=== PATIENT | female | born 1995 | race Caucasian/White ===

== ENCOUNTER 2025-03-01 11:12 | Emergency (ER) | payer SELFPAY ==
[2025-03-01 11:16] VITALS: BP 111/67; PULSE 86; TEMP 36.3; O2SAT 97; BMI 24.6
--- OUTSIDE RECORDS SUMMARY | 2025-03-01 11:22 | XMS_ITS | Encounter Summary ---
Author Organization [facility] Address [address] [place] [address] Care Team Providers Care Wharf Labourer Name Role Phone Jimbo Conley DO Primary Care Provider Julia Bernabe BLEACHING SUPERVISOR Unavailable [phone] Aron Miller BLEACHING SUPERVISOR Unavailable [phone] Reason for Visit * Reason Onset Date Comments Med Refill 02/11/2024 Encounter Details Date Type Department Care Team (Late Contact Info) Description 02/11/2024 Refill [facility] [place] [facility] [address] [phone] Julia Bernabe, BLEACHING SUPERVISOR [address] [place] [address] Attention deficit disorder, unspecified hyperactivity presence Social History Tobacco Use Types Packs/Day Years Used Date Smoking Tobacco: Never Smokeless Tobacco: Never Alcohol Use Standard Drinks/Week Comments Yes 0 (1 standard drink = 0.6 oz pure alcohol) 3 points positive interpretation; Caffeine: 1-2 cups a day coffee, tea Comments Unknown Sex and Gender Information Value Date Recorded Sex Assigned at Not on file Legal Sex Female 7:18 PM EDT Gender Identity Not on file Sexual Orientation Not on file documented as of this encounter Plan of Treatment Upcoming Encounters Date Type Department Care Team (Late Contact Info) Description 03/10/2025 3:30 PM EDT Procedure Visit MARVIN GALICIA [address] [place] [address] Hellen Núñez CN [address] [place], [place] [phone] 12/02/2025 9:00 AM EDT Office Visit [facility] [address] [facility] [address] [place] [phone] Jimbo Conley DO [address] [facility] 230 [place] [address] documented as of this encounter Visit Diagnoses Diagnosis Attention deficit disorder, unspecified hyperactivity presence documented in this encounter Care Teams Wharf Labourer Relationship Specialty Start Date End Date Jimbo Conley DO [address] [facility] 230 [place] [address] PCP - General Internal Medicine 12/12/22 Julia Bernabe NP [address] [place] [address] PCP - [place] [employer] 01/05/2407/05 Aron Miller NP PCP - [place] [employer] 07/06/24 documented as of this encounter
--- OUTSIDE RECORDS SUMMARY | 2025-03-01 11:22 | XMS_ITS | Clinical Summary ---
Author Organization [facility] Address [id number] [address] [place] [address] Care Team Providers Care Boat Cleaning Supervisor Name Role Phone Salma Caballero DO Primary Care Provider [phone] Allergies No known active allergies Medications vit no.124/iron/foli c ( VITAMIN ORAL) Take by mouth. Active Immunizations Immunization Administration Dates Next Due Rho (D) Immune Globulin 09/16/2021 Social History Tobacco Use Types Packs/Day Years Used Date Smoking Tobacco: Never Smokeless Tobacco: Never Alcohol Use Standard Drinks/Week Comments Not Currently 0 (1 standard drink = 0.6 oz pur e alcohol) occasionally AUDIT-C Answer Date Recorded Frequency of Alcohol Consumption Never 04/28/2018 Average Number of Drinks Not on file 018 Frequency of Binge Drinking Not on file 04/07 Childcare Answer Date Recorded Childcare Unknown 01/15/2019 Employment Answer Date Recorded Employment Unknown 01/15/2019 Purpose - Life Answer Date Recorded Purpose and direction in life Unknown Comments No Sex and Gender Information Value Date Recorded Sex Assigned at Not on file Legal Sex Female 11:53 AM EDT Gender Identity Not on file Sexual Orientation Not on file Last Filed Vital Signs Vital Sign Reading Time Taken Comments Blood Pressure 95/61 04/28/2018 6:12 PM EDT Pulse 92 04/28/2018 5:48 PM EDT Temperature 36.8 C (98.3 F) 04/28/2018 5:48 PM EDT Respiratory Rate 20 04/28/2018 5:48 PM EDT Oxygen Saturation 92% 04/28/2018 6:13 PM EDT Inhaled Oxygen Concentration - - Weight 51.3 kg (113 lb) 04/28/2018 5:48 PM EDT Height 154.9 cm (5' 1 ) 04/28/2018 5:48 PM EDT Body Mass Index 21.35 04/28/2018 5:48 PM EDT Plan of Treatment Health Maintenance Due Date Last Done Comments Depression Screening 2009 Tobacco Screening 2009 Adult BMI Screening 2015 Pap Smear 2018 Influenza Vaccine 04/06/2025 DTaP,Tdap and Td Vaccines (8 - Td or Tdap) 09/15/2031 09/15/2021, 04/12/2010, 04/01/2003, Additional history exists Medical Devices Not on file Insurance [employer] Care Teams Boat Cleaning Supervisor Relationship Specialty Start Date End Date Salma Caballero DO [address] [place] [address] PCP - General 04/28/18
--- OUTSIDE RECORDS SUMMARY | 2025-03-01 11:22 | XMS_ITS | Encounter Summary ---
Author Organization [facility] Address [address] [place] [address] Care Team Providers Care Freelance Displayer Name Role Phone Jimbo Conley DO Primary Care Provider [phone] Reason for Visit * Reason Onset Date Comments Med Refill 01/15/2025 Encounter Details Date Type Department Care Team (Late st Contact Info) Description 01/15/2025 Refill [facility] [address] [facility] [address] [place] [address] Miladis Beth NP [address] [facility] [address] [place] [address] Attention deficit hyperactivity disorder (ADHD), combined type Social History Tobacco Use Types Packs/Day Years Used Date Smoking Tobacco: Never Smokeless Tobacco: Never Alcohol Use Standard Drinks/Week Comments Yes 0 (1 standard drink = 0.6 oz pure alcohol) 3 points positive interpretation; Caffeine: 1-2 cups a day coffee, tea Comments No Sex and Gender Information Value Date Recorded Sex Assigned at Not on file Legal Sex Female 7:18 PM EDT Gender Identity Not on file Sexual Orientation Not on file documented as of this encounter Miscellaneous Notes * Telephone Encounter - Miladis Beth NP - 01/15/2025 5:31 PM EDT Sent documented in this encounter Plan of Treatment Upcoming Encounters Date Type Department Care Team (Late st Contact Info) Description 03/10/2025 3:30 PM EDT Procedure Visit [facility] [address] [place] [address] Hellen Núñez CNM [address] [place] [address] 12/02/2025 9:00 AM EDT Office Visit [facility] [address] [facility] [address] [place] [address] Jimbo Conley DO [address] [facility] 230 [place] [address] documented as of this encounter Visit Diagnoses Diagnosis Attention deficit hyperactivity disorder (ADHD), combined type documented in this encounter Care Teams Freelance Displayer Relationship Specialty Start Date End Date Jimbo Conley DO [address] [facility] 230 [place] [address] PCP - General Internal Medicine 12/12/22 documented as of this encounter
--- OUTSIDE RECORDS SUMMARY | 2025-03-01 11:22 | XMS_ITS | Encounter Summary ---
Author Organization [facility] Address [address] [place] [address] Care Team Providers Care Lap Machine Operator Name Role Phone Jimbo Conley Primary Care Provider Encounter Details Date Type Department Care Team (Late Contact Info) Description 01/20/2025 Results Follow-Up MARVIN GALICIA [address] [place] [address] Nahomy Briones MA Social History Tobacco Use Types Packs/Day Years [...] Upcoming Encounters Date Type Department Care Team ([facility] Contact Info) Description 03/10/2025 3:30 PM EDT Procedure Visit MARVIN GALICIA [address] [place] [address] Hellen Núñez CNM [address] [place] [address] 12/02/2025 9:00 AM EDT Office Visit [facility] [address] [facility] [address] [place] [address] Jimbo Conley DO [address] [facility] [address] [facility] 230 [place] [address] documented as of this encounter Visit Diagnoses Not on filedocumented in this encounter Care Teams Lap Machine Operator Relationship Specialty Start Date End Date Jimbo Conley DO [address] [facility] [address] [facility] 230 [place] [address] PCP - General Internal Medicine 12/12/22 documented as of this encounter
--- OUTSIDE RECORDS SUMMARY | 2025-03-01 11:22 | XMS_ITS | Clinical Summary ---
Author Organization [facility] Address [address] [place] [address] Care Team Providers Care Javascript Developer Name Role Phone CtjeannaJimbo Anai ANDERSON Primary Care Provider Allergies No known active allergies Medications etonogestrel-elut ing (Nexplanon) 68 mg contraceptive implant 1 each by Implant route 1 (one) time Active amphetamine-dextr oamphetamine XR (Adderall XR) 15 MG 24 hr capsuleIndication s:Attention deficit hyperactivity disorder (ADHD), combined type Take 1 capsule (15 mg) by mouth 1 (one) time each day at the same time 30 capsule 5 Active amphetamine-dextr oamphetamine XR (Adderall XR) 30 MG 24 hr capsuleIndication s:Attention deficit hyperactivity disorder (ADHD), combined type Take 1 capsule (30 mg) by mouth in the morning. Do not crush or chew. 30 capsule 5 Active amphetamine-dextr oamphetamine XR (Adderall XR) 15 MG 24 hr capsuleIndication s:Attention deficit hyperactivity disorder (ADHD), combined type Take 1 capsule (15 mg) by mouth 1 (one) time each day at the same time 30 capsule 5 02/14/20 25 Discontinu ed(Reorder ) amphetamine-dextr oamphetamine XR (Adderall XR) 30 MG 24 hr capsuleIndication s:Attention deficit hyperactivity disorder (ADHD), combined type Take 1 capsule (30 mg) by mouth in the morning. Do not crush or chew. 30 capsule 02/14/20 25 Discontinu ed(Reorder ) Active Problems Problem Noted Date Diagnosed Date ADHD (attention deficit hyperactivity disorder) 06/01/2023 Overview (12/03/2023): In the past she has taken Focalin and Vyvanse but these have not worked well Mild intermittent asthma 06/01/2023 Encounters Date Type Department Care Team Description 02/13/2025 Refill [facility] [address] [facility] [address] [place] [address] Ignacia, Miladis, BROKERAGE COORDINATOR Attention deficit hyperactivity disorder (ADHD), combined type 02/13/2025 Refill [facility] [address] [place] [address] Ignacia, Miladis, BROKERAGE COORDINATOR Attention deficit hyperactivity disorder (ADHD), combined type 01/20/2025 Results [facility] [address] [place] [phone] Nahomy Briones MA 01/15/2025 Refill [facility] [address] [place] [address] Ignacia, Miladis, BROKERAGE COORDINATOR Attention deficit hyperactivity disorder (ADHD), combined type 01/15/2025 Refill [facility] [address] [place] [address] Waryin, Miladis, BROKERAGE COORDINATOR Attention deficit hyperactivity disorder (ADHD), combined type 01/12/2025 4:00 PM EDT [facility] [address] [place] [address] Hellen Núñez, GISELLE Normal gynecologic examination; Screening for cervical cancer; Encounter for removal and reinsertion of Nexplanon 01/05/2025 Refill [facility] [address] [place] [address] Warchol, Miladis, BROKERAGE COORDINATOR Attention deficit hyperactivity disorder (ADHD), combined type 12/21/2024 Results Follow-Up [facility] [place] [facility] [address] [place] [address] Jimbo Conley, 12/15/2024 Refill [facility] [place] [facility] [address] [address] [place] [phone] Dai Ledbetter LPN Attention deficit hyperactivity disorder (ADHD), combined type 12/09/2024 Telephone [facility] [place] [facility] [address] [place] [address] Debra White LPN 12/04/2024 External Result Encounter [facility] External Department Unsolicited Jimbo Conley, 12/02/2024 3:30 PM EDT Office Visit [facility] [place] [facility] [address] [facility] [facility] [address] [place] [address] Jimbo Conley, Other fatigue 12/02/2024 Travel from Last 3 Months Immunizations Immunization Administration Dates Next Due DTaP 04/12/2010 DTaP, Unspecified 04/01/2003, 1,07/07/1998,1997, 1997 Hep B, Adolescent or Pediatric 07/07/1998,1996,1997 Hib (HbOC) 04/03/2001 Hib (PRP-OMP) 04/01/2003,07/07/1998,1997 ,1997 Hib / Hep B 07/07/1998,1997 IPV 04/01/2003,1997,1997 MMR 04/01/2003,07/07/1998 Meningococcal ACWY, unspecified 04/12/2010 OPV 07/07/1998 Rho(D)-IG 09/16/2021 Tdap 09/15/2021 Family History Medical History Relation Name Comments No Known Problems Daughter Cancer Father Diabetes Father Cancer Father's Sister Brain cancer Maternal Grandfather bladder cancer Mother's Brother Breast cancer Mother's Sister Cancer Paternal Grandfather Dementia Paternal Grandfather No Known Problems Sister Relation Name Status Comments Brother 3 Daughter 1 Father Alive Father's Sister Maternal Grandfather Mother Alive Mother's Brother Mother's Sister Paternal Grandfather Sister 2 Social History Tobacco Use Types Packs/Day Years Used Date Smoking Tobacco: Never Smokeless Tobacco: Never Tobacco Cessation:Counseling Given: Not Answered Alcohol Use Standard Drinks/Week Comments Yes 0 [...] Sign Reading Time Taken Comments Blood Pressure 110/70 01/12/2025 4:11 PM EDT Pulse 90 12/02/2024 3:51 PM EDT Temperature - - Respiratory Rate - - Oxygen Saturation 98% 12/02/2024 3:51 PM EDT Inhaled Oxygen Concentration - - Weight 59.9 kg (132 lb) 01/12/2025 4:11 PM EDT Height 156.2 cm (5' 1.5 ) 12/02/2024 3:51 PM EDT Body Mass Index 24.54 12/02/2024 3:51 PM EDT Plan of Treatment Upcoming Encounters Date Type Department Care Team (Late st Contact Info) Description 03/10/2025 3:30 PM EDT Procedure Visit MARVIN GALICIA [address] [place] [phone] Hellen Núñez CN [address] [place], [place] [phone] 12/02/2025 9:00 AM EDT Office Visit [facility] [address] [place] [address] Jimbo Conley DO [address] [place] [address] Health Maintenance Due Date Last Done Comments Influenza Vaccine (#1) 2025 Procedures Procedure Name Priority Date/Time Associated Diagnosis Comments THINPREP IMAGING PAP AND HPV DNA REFLEX HPV 16,18 Routine 01/12/2025 5:00 PM EDT Screening for cervical cancer TSH Routine 12/04/2024 2:13 PM EDT CBC (INCLUDES DIFF/PLT) Routine 12/04/2024 2:13 PM EDT IRON AND TOTAL IRON BINDING CAPACITY Routine 12/04/2024 2:13 PM EDT from Last 3 Months Results * THINPREP IMAGING PAP AND HPV DNA REFLEX HPV 16,18 (01/12/2025 5:00 PM EDT) CLINICAL INFORMATION [facility] Comment:None given LMP [facility] Comment:NONE GIVEN PREV. PAP [facility] Comment:NONE GIVEN PREV. BX [facility] Comment:NONE GIVEN SOURCE [facility] Comment:None given STATEMENT OF ADEQUACY [facility] Comment: Satisfactory for evaluation. Endocervical/transformation zone component present. INTERPRETATION/RESU LT [facility] Comment: Cytology Results: Negative for intraepithelial lesion or malignancy. COMMENT [facility] Comment: This Pap test has been evaluated with computer assisted technology. PROGRAM SUPPORT CLERK [facility] Comment: [facility], [place](ASCP) CT screening location: [facility] [address]. REVIEW PROGRAM SUPPORT CLERK [facility] Comment: [facility], CT(ASCP) CT screening location: [place] [address]. (ALWAYS MESSAGE) [facility] Comment: EXPLANATORY NOTE: The Pap is a screening test for cervical cancer. It is not a diagnostic test and is subject to false negative and false positive results. It is most reliable when a satisfactory sample, regularly obtained, is submitted with relevant clinical findings and history, and when the Pap result is evaluated along with historic and current clinical information. HPV DNA, HIGH RISK, CERVICAL Not Detected NOT DETECTED [facility] Comment: Not Detected High Risk HPV types (16,18,31,33,35,39,45,51,52, 56,58,59,66,68) were not detected. Other HPV types which cause anogenital lesions may be present. The significance of the other types of HPV in malignant processes has not been established. Methodology: Real Time PCR Swab Cervical swab / Unknown 01/12/2025 5:00 PM EDT 01/14/2025 3:38 AM EDT Narrative Resulting Agency Comment Performing Organization Information Site ID: [id number] Name: [facility] Address: [address] [place] [address] Dr [place], [place] Director: Timmy Maguire M.D.,PhD Site ID: [id number] Name: [facility] Address: [address] [place] [address], [address] [place] [phone] Director: Naseem Hu MD us Hellen FLORES LAB CYTOLOGY ORDERABLES Audelia l Result Performing Organization Address [facility] de Phone Number [facility] * Iron and TIBC (12/04/2024 2:13 PM EDT) Pathologist [facility] IRON, TOTAL 63 40 - 190 mcg/dL [facility] IRON BINDING CAPACITY 318 250 - 450 mcg/dL (calc) [facility] % SATURATION 20 16 - 45 % (calc) [facility] 12/04/2024 2:13 PM EDT 12/04/2024 2:16 PM EDT Narrative [facility] - 12/05/2024 7:31 AM EDT FASTING:NO FASTING: NO Resulting Agency Comment Performing Organization Information Site ID: [id number] Name: [facility] Address: [address] [place] [address], [address] [place], [place] [id number] Director: Naseem Hu MD us Jimbo Conley DO LAB BLOOD ORDERABLES Final R esult Performing Organization Address [facility] de Phone Number [facility] * CBC and differential (12/04/2024 2:13 PM EDT) WHITE BLOOD CELL COUNT 9.6 3.8 - 10.8 Thousand/u L [facility] RED BLOOD CELL COUNT 4.64 3.80 - 5.10 Million/uL [facility] HEMOGLOBIN 13.5 11.7 - 15.5 g/dL [facility] HEMATOCRIT 39.4 35.0 - 45.0 % [facility] MCV 84.9 80.0 - 100.0 fL [facility] MCH 29.1 27.0 - 33.0 pg [facility] MCHC 34.3 32.0 - 36.0 g/dL [facility] Comment: For adults, a slight decrease in the calculated MCHC value (in the range of 30 to 32 g/dL) is most likely not clinically significant; however, it should be interpreted with caution in correlation with other red cell parameters and the patient's clinical condition. RDW 12.1 11.0 - 15.0 % [facility] PLATELET COUNT 335 140 - 400 Thousand/u L [facility] MPV 10.5 7.5 - 12.5 fL [facility] ABSOLUTE NEUTROPHILS 6,614 1,500 - 7,800 cells/uL [facility] ABSOLUTE LYMPHOCYTES 2,371 850 - 3,900 cells/uL [facility] ABSOLUTE MONOCYTES 499 200 - 950 cells/uL [facility] ABSOLUTE EOSINOPHILS 86 15 - 500 cells/uL [facility] ABSOLUTE BASOPHILS 29 0 - 200 cells/uL [facility] NEUTROPHILS 68.9 % [facility] LYMPHOCYTES 24.7 % [facility] MONOCYTES 5.2 % [facility] EOSINOPHILS 0.9 % [facility] BASOPHILS 0.3 % [facility] 12/04/2024 2:13 PM EDT 12/04/2024 2:16 PM EDT Narrative [facility] - 12/05/2024 7:31 AM EDT FASTING:NO FASTING: NO Resulting Agency Comment Performing Organization Information Site ID: [id number] Name: [facility] Address: [address] [place] [phone] Director: Naseem Hu MD us Jimbo Conley DO LAB BLOOD ORDERABLES Final R esult [facility] * TSH (12/04/2024 2:13 PM EDT) TSH 1.09 mIU/L [facility] Comment: Reference Range > or = 20 Years 0.40-4.50 Ranges First trimester 0.26-2.66 Second trimester 0.55-2.73 Third trimester 0.43-2.91 12/04/2024 2:13 PM EDT 12/04/2024 2:16 PM EDT Narrative [facility] - 12/05/2024 7:31 AM EDT FASTING:NO FASTING: NO Resulting Agency Comment Performing Organization Information Site ID: [id number] Name: [facility] Address: [address] [facility], [address] [place] [phone] Director: Naseem Hu MD Jimbo Conley DO LAB BLOOD ORDERABLES Final R esult [facility] from Last 3 Months Insurance BCBS Care Teams Javascript Developer Relationship Specialty Start Date End Date Jimbo Conley DO [address] Beth[address] Lange [address] [address] PCP - General Internal Medicine 12/12/22
--- OUTSIDE RECORDS SUMMARY | 2025-03-01 11:22 | XMS_ITS | Encounter Summary ---
Author Organization [facility] Address [address] [place] [address] Care Team Providers Care Loftsman Name Role Phone Jimbo Conley DO Primary Care Provider Julia Bernabe FILM EXAMINER Unavailable Aron Miller FILM EXAMINER Unavailable [phone] Reason for Visit * Reason Onset Date Comments Med Refill 01/11/2024 Encounter Details Date Type Department Care Team (Late Contact Info) Description 01/11/2024 Refill [facility] [address] [facility] 230 [place] [address] Aron Miller NP Attention deficit disorder, unspecified hyperactivity presence Social [...] Upcoming Encounters Date Type Department Care Team ([facility] Contact Info) Description 03/10/2025 3:30 PM EDT Procedure Visit MARVIN GALICIA [facility] [place] [address] Hlelen Núñez, CN [address] [facility] [place] [address] 12/02/2025 9:00 AM EDT Office Visit [facility] [place] [facility] [address] [facility] [address] [place] [address] Jimbo Conley DO [address] [facility] [address] [place] [address] documented as of this encounter Visit Diagnoses Diagnosis Attention deficit disorder, unspecified hyperactivity presence documented in this encounter Care Teams Loftsman Relationship Specialty Start Date End Date Jimbo Conley DO [address] [facility] [address] [place] [address] PCP - General Internal Medicine 12/12/22 Julia Bernabe NP [address] [place] [address] PCP - [place] [employer] 01/05/2407/05 Aron Miller NP PCP - [place] [employer] 07/06/24 documented as of this encounter
--- OUTSIDE RECORDS SUMMARY | 2025-03-01 11:22 | XMS_ITS | Encounter Summary ---
Author Organization [facility] Address [address] [facility], [address] [place] [address] Care Team Providers Care Station Mechanic Helper Name Role Phone Unavailable Primary Care Provider Unavailwinnie e Encounter Details Date Type Department Care Team (Late st Contact Info) Description 12/26/2021 FollowUp Telephone Encounter [facility] Labor and Delivery [address] [place] [address] Alicia Black, [place] [address] Social History Tobacco Use Types Packs/Day Years Used Date Smoking Tobacco: Never Smokeless Tobacco: Never Alcohol Use Standard Drinks/Week Comments Not Currently 0 (1 standard drink = 0.6 oz pur e alcohol) Comments No Sex and Gender Information Value Date Recorded Sex Assigned at Not on file Legal Sex Female 11:29 AM EDT Gender Identity Not on file Sexual Orientation Not on file COVID-19 Exposure Response Date Recorded In the last 10 days, have yo u been in contact with someone who was confirmed or suspected to have Coronavirus/COVID-19? No / Unsure 12/12/2021 1:50 AM EDT documented as of this encounter Plan of Treatment Not on file documented as of this encounter Visit Diagnoses Not on filedocumented in this encounter
--- OUTSIDE RECORDS SUMMARY | 2025-03-01 11:22 | XMS_ITS | Encounter Summary ---
Author Organization [facility] Address [address] [place] [address] Care Team Providers Care Pbx Installer Name Role Phone Jimbo Conley DO Primary Care Provider Encounter Details Date Type Department Care Team (Late Contact Info) Description 12/21/2024 Results Follow-Up [facility] [address] [facility] [address] [place] [address] Jimbo Conley DO [address] [facility] [address] [place] [address] Social History Tobacco Use Types Packs/Day Years [...] Upcoming Encounters Date Type Department Care Team ([facility] Contact Info) Description 03/10/2025 3:30 PM EDT Procedure Visit MARVIN GALICIA [address] [place] [phone] Hellen Núñez, MARKM [address] [place] [address] 12/02/2025 9:00 AM EDT Office Visit [facility] [place] [facility] [address] [place] [address] Jimbo Conley DO [address] [place] [address] documented as of this encounter Visit Diagnoses Not on filedocumented in this encounter Care Teams Pbx Installer Relationship Specialty Start Date End Date Jimbo Conley DO [address] [facility] [facility] [address] [place] [address] PCP - General Internal Medicine 12/12/22 documented as of this encounter
--- OUTSIDE RECORDS SUMMARY | 2025-03-01 11:22 | XMS_ITS | Encounter Summary ---
Author Organization [facility] Address [address] [place] [address] Care Team Providers Care Field Radio Operator Name Role Phone Jimbo Conley DO Primary Care Provider Julia Bernabe CHILD CARE LEAD TEACHER Unavailable Aron Miller CHILD CARE LEAD TEACHER Unavailable [phone] Reason for Visit * Reason Onset Date Comments Med Refill 02/17/2024 Encounter Details Date Type Department Care Team (Late st Contact Info) Description 02/17/2024 Refill [facility] Internal Medicine [address] [phone] Julia Bernabe, CHILD CARE LEAD TEACHER [address] [place] [address] Attention deficit disorder, unspecified hyperactivity presence Social [...] encounter Miscellaneous Notes * Telephone Encounter - Dai Ledbetter LPN - 02/18/2024 8:00 AM EDT Duplicate documented in this encounter Plan of Treatment Upcoming Encounters Date Type Department Care Team (Late st Contact Info) Description 03/10/2025 3:30 PM EDT Procedure Visit [facility] [address] [place] [address] Hellen Núñez CNM [address] [place], [place] [phone] 12/02/2025 9:00 AM EDT Office Visit [facility] [place] [facility] [address] [facility] [address] [place] [phone] Jimbo Conley DO [address] [facility] [address] [place] [address] documented as of this encounter Visit Diagnoses Diagnosis Attention deficit disorder, unspecified hyperactivity presence documented in this encounter Care Teams Field Radio Operator Relationship Specialty Start Date End Date Jimbo Conley DO [address] [facility] [address] [place] [address] PCP - General Internal Medicine 12/12/22 Julia Bernabe NP [address] [place] [address] PCP - [place] [employer] 01/05/2407/05 Aron Miller NP PCP - [place] [employer] 07/06/24 documented as of this encounter
--- OUTSIDE RECORDS SUMMARY | 2025-03-01 11:22 | XMS_ITS | Clinical Summary ---
Author Organization [facility] Address [address] [facility], [address] [place] [address] Care Team Providers Care Satellite Dish Repairer Name Role Phone Unavailable Primary Care Provider Unavailabl e Allergies No known active allergies Medications amphetamine-dex troamphetamine (ADDERALL XR) 10 MG extended release capsule Take 25 mg by mouth every morning. 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 fetus 12/15/2021 Failure to progress in labor 12/15/2021 Family History Medical History Relation Name Comments Breast Cancer Maternal Aunt Cancer Maternal Grandfather Cancer Maternal Uncle Relation Name Status Comments Maternal Aunt Maternal Grandfather Maternal Uncle Social History Tobacco Use Types Packs/Day Years [...] Sign Reading Time Taken Comments Blood Pressure 132/75 12/15/2021 7:31 AM EDT Pulse 105 12/15/2021 7:31 AM EDT Temperature 36.4 C (97.5 F) 12/15/2021 7:31 AM EDT Respiratory Rate 16 12/15/2021 7:31 AM EDT Oxygen Saturation 95% 12/13/2021 3:45 AM EDT Inhaled Oxygen Concentration - - Weight 81.6 kg (180 lb) 12/12/2021 1:50 AM EDT Height 156.2 cm (5' 1.5 ) 12/12/2021 1:50 AM EDT Body Mass Index 33.46 12/12/2021 1:50 AM EDT Plan of Treatment Not on file Insurance [employer] Advance Directives * Full Code (Latest Code Status on File) Date Activated Date Inactivated Comments 12/12/2021 1:25 AM 12/13/2021 3:56 AM
--- OUTSIDE RECORDS SUMMARY | 2025-03-01 11:22 | XMS_ITS | Encounter Summary ---
Author Organization [facility] Address [address] [place] [address] Care Team Providers Care Gis Geographer Name Role Phone Jimbo Conley DO Primary Care Provider Julia Bernabe HAND SURGEON Unavailable [phone] Aron Miller HAND SURGEON Unavailable [phone] Reason for Visit * Reason Onset Date Comments Med Refill 03/20/2024 Encounter Details Date Type Department Care Team (Late Contact Info) Description 03/20[facility] [address] [facility] [address] [place] [phone] Jimbo Conley DO [address] [facility] [address] [place] [address] Attention deficit disorder, unspecified hyperactivity presence Social [...] EDT Procedure Visit [facility] [address] [facility] [place] [address] Hellen Núñez CNM [address] [facility] [place] [address] 12/02/2025 9:00 AM EDT Office Visit [facility] [address] [email or web address] [address] [place] [address] Jimbo Conley DO [address] [facility] [address] [place] [address] documented as of this encounter Visit Diagnoses Diagnosis Attention deficit disorder, unspecified hyperactivity presence documented in this encounter Care Teams Gis Geographer Relationship Specialty Start Date End Date Jimbo Conley DO [address] [facility] [address] [place] [address] PCP - General Internal Medicine 12/12/22 Julia Bernabe NP [address] [place] [address] PCP - [place] [employer] 01/05/2407/05 Aron Miller NP PCP - [place] [employer] 07/06/24 documented as of this encounter
--- NOTE | 2025-03-01 11:23 | ED_ITS ---
HPI HPI - General Adult General Chief complaint: Nausea/Vomiting/Diarrhea Stated complaint: VOMITING, LIGHT HEADED Time Seen by Provider: 03/01/25 11:18 Source: patient Mode of arrival: Wheelchair History of Present Illness HPI narrative: 29-year-old female presents to the emergency department for nausea and vomiting. She believes she has a hangover. She was drinking alcohol heavily last night and started vomiting about 8:00 this morning. No fever or diarrhea. She had a period about a week ago. Related Data Previous Rx's ?Medication ?Instructions ?Recorded ondansetron 4 mg disintegrating 4 mg PO Q6H PRN nausea and 03/01/25 tablet vomiting #20 tabs Allergies Allergy/AdvReac Type Severity Reaction Status Date / Time No Known Drug Allergies Allergy Verified 03/01/25 11:20 Review of Systems ROS Narrative A ten point review of systems is negative except as noted above. PFSH PFSH Social History Little interest or pleasure in doing things: not at all Feeling down, depressed, or hopeless: not at all Exam Narrative Exam Narrative: Nurses note and vital signs reviewed and patient is not hypoxic. General: The patient appears well and in no apparent distress. Patient is resting comfortably on cart. Skin: Warm, dry, no pallor noted. There is no rash noted. Head: Normocephalic, atraumatic Eye: Normal conjunctiva, no drainage Ears, Nose, Mouth, and Throat: oral mucosa is moist. Nares patent. Cardiovascular: Regular Rate and Rhythm Respiratory: Patient is in no distress, no accessory muscle use, lungs are clear to auscultation, no wheezing, rales or rhonchi Back: non-tender GI: Soft and nontender Musculoskeletal: The patient has no evidence of calf tenderness, no pitting edema, symmetrical pulses noted bilaterally Neurological: A&O, normal speech Psychiatric: Cooperative Constitutional Vital Signs, click to edit/add: Last Vital Signs Temp 97.4 F L 03/01/25 11:16 Pulse 86 03/01/25 11:16 Resp 16 03/01/25 11:16 BP 111/67 03/01/25 11:16 Pulse Ox 97 03/01/25 11:16 O2 Del Method Room Air 03/01/25 11:16 Course Vital Signs Vital signs: Vital Signs Temperature 97.4 F L 03/01/25 11:16 Pulse Rate 86 03/01/25 11:16 Respiratory Rate 16 03/01/25 11:16 Blood Pressure 111/67 03/01/25 11:16 Pulse Oximetry 97 03/01/25 11:16 Oxygen Delivery Method Room Air 03/01/25 11:16 Temperature 97.4 F L 03/01/25 11:16 Pulse Rate 86 03/01/25 11:16 Respiratory Rate 16 03/01/25 11:16 Blood Pressure 111/67 03/01/25 11:16 Pulse Oximetry 97 03/01/25 11:16 Oxygen Delivery Method Room Air 03/01/25 11:16 Medical Decision Making MDM Narrative Medical decision making narrative: The patient feels improved after IV fluids and Zofran. Her laboratory analysis is negative. She is sent home with a prescription for Zofran. Treatment diagnosis and follow-up were discussed with the patient. Differential Diagnosis Differential Diagnosis: Dehydration, electrolyte imbalance Lab Data Lab results reviewed: Yes I reviewed the patient's lab results Labs: Lab Results 03/01/25 Range/Units 11:30 WBC 10.0 (4.0-11.0) 10^3/uL RBC 4.97 (4.20-5.40) 10^6/uL Hgb 14.3 (12.0-16.0) g/dL Hct 40.6 (36.0-48.0) % MCV 81.7 (81.0-99.0) fL MCH 28.8 (26.7-34.0) pg MCHC 35.2 (29.9-35.2) g/dL RDW 12.1 (11.0-15.0) % Plt Count 357 (150-450) 10^3/uL MPV 9.5 (9.5-13.5) fL Neut % (Auto) 66.6 (43.0-75.0) % Lymph % (Auto) 26.7 (20.5-60.0) % Taliaferro % (Auto) 5.4 (1.7-12.0) % Eos % (Auto) 0.9 (0.9-7.0) % Baso % (Auto) 0.2 (0.2-2.0) % Neut # (Auto) 6.6 H (1.4-6.5) 10^3/uL Lymph # (Auto) 2.7 (1.2-3.8) 10^3/uL Taliaferro # (Auto) 0.5 (0.3-0.8) 10^3/uL Eos # (Auto) 0.1 (0.0-0.7) 10^3/uL Baso # (Auto) 0.0 (0.0-0.1) 10^3/uL Abs Immat Gran (auto) 0.02 (0.00-0.03) 10^3/uL Imm/Tot Granulo (auto) 0.2 (0.0-0.5) % Sodium 143 (136-145) mmol/L Potassium 4.2 (3.5-5.1) mmol/L Chloride 106 (98-107) mmol/L Carbon Dioxide 28.3 (21.0-32.0) mmol/L Anion Gap 12.9 BUN 20.0 H (7.0-18.0) mg/dL Creatinine 0.67 (0.55-1.02) mg/dL Est GFR ( Amer) >60 (>=60 mL/min/1.73m^2) Est GFR (Non-Af Amer) >60 (>=60 mL/min/1.73m^2) BUN/Creatinine Ratio 29.9 Glucose 105 (74-106) mg/dL Calcium 10.0 (8.5-10.1) mg/dL Serum HCG, Qual Negative (NEGATIVE) Discharge Plan Discharge Chief Complaint: Nausea/Vomiting/Diarrhea Clinical Impression: Nausea & vomiting Patient Disposition: Home, Self-Care Time of Disposition Decision: 12:34 Condition: Good Mode of Transportation: Private Vehicle Prescriptions / Home Meds: New ondansetron 4 mg tablet,disintegrating 4 mg PO Q6H PRN (Reason: nausea and vomiting) Qty: 20 0RF Print Language: Albanian Instructions: Acute Nausea and Vomiting (ED) Referrals: SHANA KOO [Primary Care Provider, Internal Medicine] - 1 week
[2025-03-01] MEDS: 0.9 % SODIUM CHLORIDE 1,000 ML 1000 ML IV (11:34)
[2025-03-01 11:39] LABS: Hematocrit 40.6 % (36.0-48.0); Hemoglobin 14.3 g/dL (12.0-16.0); Immature Granulocytes Abs Auto 0.02 10^3/uL (0.00-0.03); Immature Granulocytes Pct Auto 0.2 % (0.0-0.5); Lymphocytes Absolute Auto 2.7 10^3/uL (1.2-3.8); Mean Corpuscular HGB Conc 35.2 g/dL (29.9-35.2); Mean Corpuscular Hemoglobin 28.8 pg (26.7-34.0); Mean Corpuscular Volume 81.7 fL (81.0-99.0); Platelet Count 357 10^3/uL (150-450); Red Blood Count 4.97 10^6/uL (4.20-5.40); White Blood Count 10.0 10^3/uL (4.0-11.0)
[2025-03-01 11:48] LABS: Anion Gap 12.9; Blood Urea Nitrogen 20.0 mg/dL (7.0-18.0); Calcium 10.0 mg/dL (8.5-10.1); Carbon Dioxide 28.3 mmol/L (21.0-32.0); Chloride 106 mmol/L (98-107); Estimated GFR (African America >60 (>=60 mL/min/1.73m^2); Estimated GFR (Non-African Ame >60 (>=60 mL/min/1.73m^2); Glucose 105 mg/dL (74-106); Potassium 4.2 mmol/L (3.5-5.1); Sodium 143 mmol/L (136-145)
== END 2025-03-01 12:42 | disposition home or self-care (01) ==
PROVIDERS: Emergency Provider Emergency Medicine; PCP Internal Medicine
DX: R11.2 Nausea with vomiting, unspecified (principal)
CPT/HCPCS: 36415; 80048; 84703; 85025; 96361; 96374; 99284; J2405